=== PATIENT | male | born 1960 | race Caucasian/White ===

== ENCOUNTER → 2022-11-01 | Outpatient (CLI) | payer OTHER ==
--- NOTE | 2022-11-01 13:02 | Diagnostic Imaging Report ---
EXAMINATION: Magnetic resonance imaging of the pelvis and left hip without contrast DATE: November 01, 2022. COMPARISON: None. INDICATION: 62-year-old male, left hip pain. TECHNIQUE: Magnetic Resonance Imaging sequences were performed of the pelvis and left hip without contrast. TENDONS AND MUSCLES: The gluteus fritz muscles and their origins and insertions are intact bilaterally. The tendons and muscles of the greater trochanter - gluteus minimus, piriformis and gluteus medius - are intact bilaterally. Both common hamstring attachments on the ischial tuberosities are intact and the extensor muscles of the thigh are intact. The visualized portions of the flexors and adductor muscles of the thigh and their attachments on the pelvis and hips are intact. Both iliopsoas and iliacus muscles are intact. The bilateral iliopsoas tendons are intact. HIPS AND SACROILIAC JOINTS: The contours of the femoral heads and acetabuli are smooth and symmetric. There is no identified fluid-filled labral tear or paralabral cyst. There is no identified articular cartilage defect of either hip. There is no hip joint effusion. The sacroiliac joints are unremarkable. LUMBAR SPINE: There is moderate disc height loss at L4-L5 and L5-S1. There is otherwise limited assessment of the lumbar spine. BONE: The bones all have normal configuration. The bone marrow signal is within normal limits. Specifically, negative for fracture, osteomyelitis, osteonecrosis, or marrow replacing process. BURSAE AND SOFT TISSUES: The bursae and soft tissues surrounding the pelvis and hips are within normal limits. IMPRESSION: 1. Unremarkable evaluation of both hip joints. 2. Intact muscles and tendons. 3. No acute fracture, bone contusion, or evidence of osteonecrosis. 4. Moderate disc height loss at L4-L5 and L5-S1 with otherwise limited assessment of the lumbar spine. Dictated by: Dictated on workstation # [id number]
== END ==
LOC: RAD 07:28
DX: M25.552 Pain in left hip (principal)
CPT/HCPCS: 73721

== ENCOUNTER → 2023-02-27 | Outpatient (CLI) | payer OTHER ==
--- NOTE | 2023-02-27 12:06 | Diagnostic Imaging Report ---
PROCEDURE: CT chest without contrast. TECHNIQUE: Multiple contiguous axial images were obtained through the chest without the use of intravenous contrast. Auto Exposure Controls were utilized during the CT exam to meet ALARA standards for radiation dose reduction. INDICATION: Evaluate for carcinoma. COPD, difficulty breathing, shortness of breath, smoker's cough. CT chest without contrast 02/27/2023 FINDINGS: There are multiple bilateral subpleural nodules throughout all lobes. Other nodules are seen diffusely in both lungs, some of the more dominant lesions include a 5.7 mm nodule in the right upper lobe posteriorly, image 32. Within the right middle lobe, image 73, a 7 mm nodule is noted anteriorly with a more posterior 7.3 mm nodule. More inferiorly within the right middle lobe, a 7 mm nodule is present. Other scattered less than 5 mm nodules are seen throughout the right lung. Within the left upper lobe posteriorly, a 4 mm nodule is noted on image 38. Multiple other less than 5 mm nodules are seen bilaterally. There are no pericardial or pleural effusions. Scattered minimally prominent lymph nodes seen throughout the mediastinum. Slightly prominent lymph nodes noted within the right suprahilar region, the largest of which measures 1.5 cm in greatest dimension. Within the distal esophagus, circumferential wall thickening is noted possibly due to under distention. Esophagitis should be clinically excluded. Small mass less likely but difficult to exclude. The visualized upper abdomen unremarkable. No acute osseous abnormality. Small cystic area left kidney incompletely imaged but simple in appearance as visualized. IMPRESSION: 1. Multiple bilateral lung nodules, the largest of which is under 8 mm. These are nonspecific at this time with a metastatic process not excluded. Follow-up recommended. 2. Slightly prominent lymph nodes in the mediastinum and right perihilar region which could be due to a recent inflammatory or infectious process with a metastatic process not excluded. These could be reevaluated at follow-up. 3. Circumferential wall thickening distal esophagus, see above discussion. Dictated by: Dictated on workstation # [id number]
== END ==
LOC: RAD 09:40
PROVIDERS: ATTEND Nurse Practitioner
DX: D14.30 Benign neoplasm of unspecified bronchus and lung (principal); K22.89 Other specified disease of esophagus
CPT/HCPCS: 71250